=== PATIENT | female | born 1955 | race Caucasian/White ===

== ENCOUNTER 2018-10-12 12:08 | Emergency (ER) | payer SELFPAY ==
[~2018-10-12] VITALS: Ht 157.5 cm; Wt 61.0 kg
[2018-10-12 12:20] VITALS: BP 135/76
== END 2018-10-12 14:58 | disposition home or self-care (01) ==
LOC: ER 12:08
DX: H10.32 Unspecified acute conjunctivitis, left eye (principal)
CPT/HCPCS: 99283